=== PATIENT | female | born 1970 | race African-American/Black ===

== ENCOUNTER 2017-03-29 05:35 | Emergency (ER) | payer SELFPAY ==
[~2017-03-29] VITALS: Ht 177.8 cm; Wt 59.0 kg
[2017-03-29] MEDS ORDERED: IBUPROFEN 400MG TABLET PO ONE (06:30)
[2017-03-29] MEDS ORDERED: ONDANSETRON 4MG ODT PO ONE (06:30)
[2017-03-29 09:12] VITALS: BP 140/100
== END 2017-03-29 09:14 | disposition home or self-care (01) ==
LOC: ER 05:45
DX: S00.33XA Contusion of nose, initial encounter (principal); R51 Headache; R11.0 Nausea; Y08.89XA Assault by other specified means, initial encounter; Y93.89 Activity, other specified; Y92.89 Other specified places as the place of occurrence of the external cause; Y99.8 Other external cause status
CPT/HCPCS: 99283; Q0162